=== PATIENT | male | born 1985 | race Caucasian/White ===

== ENCOUNTER 2018-02-07 21:07 | Emergency (ER) | payer SELFPAY ==
[2018-02-07] MEDS ORDERED: Sodium Chloride 0.9% 1,000 ML IV ONE ×2 (21:43→23:22)
--- NOTE | 2018-02-07 21:56 | C.PDOC ---
History Of Present Illness 32 year old male presents to the ER with a complaint of fever and body aches for the past 2 days, associated with mild congestion and mild cough. Patient states he started to have a right sided headache and facial pain and was convinced that he had an otitis media. He was started on augmentin and ibuprofen for pain; however, fever is still 103 and headache persists. He also notes feeling some pain to his right ear; denies other PMHx, chest pain, abdominal pain, nausea, or vomiting. Time Seen by Provider: 02/07/18 21:38 Chief Complaint (Nursing): Fever History Per: Patient History/Exam Limitations: no limitations Onset/Duration Of Symptoms: Days Current Symptoms Are (Timing): Still Present Location Of Pain: Ear(s), Sinus/es, Headache Sick Contacts (Context): None Associated Symptoms: Fever, Cough, Myalgias, Nasal Congestion. denies: Nausea, Vomiting, Diarrhea Ear Symptoms: Bilateral: None Recent travel outside of the [place]: No Past Medical History Reviewed: Historical Data, Nursing Documentation, Vital Signs Vital Signs: Last Vital Signs Temp 100.8 F H 02/08/18 00:59 Pulse 94 H 02/08/18 00:59 Resp 18 02/08/18 00:59 BP 116/70 02/08/18 00:59 Pulse Ox 96 02/08/18 00:59 Family History: States: Unknown Family Hx - Social History Hx Alcohol Use: No Hx Substance Use: No - Immunization History Hx Tetanus Toxoid Vaccination: No Hx Influenza Vaccination: No Hx Pneumococcal Vaccination: No Review Of Systems Constitutional: Positive for: Fever ENT: Positive for: Ear Pain Respiratory: Positive for: Cough, Other (Congestion) Gastrointestinal: Negative for: Nausea, Vomiting Musculoskeletal: Positive for: Other (Body aches) Neurological: Positive for: Headache Physical Exam - Physical Exam Appears: Non-toxic, No Acute Distress, Other (Uncomfortable) Skin: Normal Color, Warm, Dry Head: Atraumatic, Normacephalic, Tenderness (Mild right frontal) Eye(s): bilateral: Normal Inspection Ear(s): Bilateral: Normal (No fluid) Nose: Normal Oral Mucosa: Moist Throat: Normal, No Erythema, No Exudate Neck: Normal, Supple Lymphatic: No Adenopathy Chest: Symmetrical, No Tenderness Cardiovascular: Rhythm Regular Respiratory: Normal Breath Sounds, No Rales, No Rhonchi, No Wheezing Gastrointestinal/Abdominal: Soft, No Tenderness Back: No CVA Tenderness Neurological/Psych: Oriented x3, Normal Speech ED Course And Treatment - Laboratory Results Result Diagrams: 02/07/18 22:10 02/07/18 22:10 Lab Interpretation: No Acute Changes (Negative flu) O2 Sat by Pulse Oximetry: 96 (Room air) Pulse Ox Interpretation: Normal - Radiology CXR: Interpreted by Ny CXR Interpretation: Yes: Infiltrates (right pneumonia) - CT Scan/US sinuses Other Rad Studies (CT/US): Read By Radiologist, Radiology Report Reviewed CT/US Interpretation: Accession No. : [id number]. Patient Name / ID : SERA GOODSON / [id number]. Exam Date : 02/07/2018 22:15:23 ( Approved ). Study Comment : Sex / Age : M / 32Y. Creator : Cody Rashid MD. Dictator : Shank Stapler : Water Mangle Tender : Cody Rashid MD. Approver2 : Report Date : 22:54:00. My Comment : . [facility] Division of Radiology. [address] [place] [address]. Tel. no. [phone]. . . Patient Name: KELLEE ZAMORA . Pt. Address: [address] [place] [address] Rec #: [id number]. [place] [address]: Nessa Johnson MD. Pt Order Location: [facility] : 1985 Male Age: 32 Order #: [id number]. Accession # : [id number]. Reason for exam: fever with right sided headache. . . . . . CT Scan. . . SINUSES W/O CONTRAST Exam Date: 02/07/18. . This imaging exam was performed at [facility]. EXAM: CT Maxillofacial Sinuses Without Intravenous Contrast. . CLINICAL HISTORY: 32 years old, male; Pain; Headache; Tension; Additional info: Fever with. right sided headache. . TECHNIQUE: Computed tomography images of the maxillofacial sinuses without intravenous. contrast. All CT scans at this facility use one or more dose reduction. techniques, viz.: automated exposure control; ma/kV adjustment per patient size. (including targeted exams where dose is matched to indication; i.e. head); or. iterative reconstruction technique. Coronal and sagittal reformatted images were created and reviewed. . COMPARISON: No relevant prior studies available. . FINDINGS: Maxillary sinuses: Minimal mucosal thickening. Right maxillary retention. cyst. No air -fluid levels. Sphenoid sinuses: Minimal mucosal thickening. No air-fluid levels. Frontal sinuses: Minimal mucosal thickening. No air-fluid levels. Ethmoid air cells: Mild mucosal thickening. No air-fluid levels. Nasal cavity /septum: No acute findings. Mastoid air cells: No mastoid effusion. Bones/ joints: No acute fracture. Soft tissues: Unremarkable. Orbits: Unremarkable as visualized. . IMPRESSION: 1. Sinus disease as above. . Dictated By: Cody Rashid MD. Dictated Date/Time: 02/07/182253. Signed By: Cody Rashid MD. Date Signed: 02/07/182253. Transcribed By: [employer]gle[employer]. Transcribe Date/Time: 02/07/182253. ACYP02/MT Progress Note: CT sinus, blood work, CXR, flu swab, urinalysis ordered. IV fluids and toradol administered. Reevaluation Time: : Reassessment Condition: Improved (Still c/o right sided headache but temperature decreased to 100.8.) - Physician Consult Information Time Consulting Physician Contacted: 23:17 Physician Contacted: Amna Lama Outcome Of Conversation: will change antibiotics to Biaxin and will give Tramadol for persistent pain if needed. He will see him in the office. He should return to the Ed if symptoms worsen. Disposition Counseled Patient/Family Regarding: Studies Performed, Diagnosis, Need For Followup, Rx Given - Disposition Referrals: Amna Lama [Staff Provider] - Disposition: HOME/ ROUTINE Disposition Time: :01 Condition: IMPROVED Prescriptions: Clarithromycin [Biaxin Filmtab] 500 mg PO BID #20 tab traMADol [Ultram] 50 mg PO QID PRN #14 tab PRN Reason: Pain, Severe (8-10) Instructions: Community-Acquired Pneumonia in Adults Forms: [facility] (Czech) - Clinical Impression Clinical Impression: Pneumonia - Scribe Statement The provider has reviewed the documentation as recorded by the Scribe Shashank Rosas All medical record entries made by the Scribe were at my direction and personally dictated by me. I have reviewed the chart and agree that the record accurately reflects my personal performance of the history, physical exam, medical decision making, and the department course for this patient. I have also personally directed, reviewed, and agree with the discharge instructions and disposition.
[2018-02-07 22:13] LABS: BASO % 0.2 % (0.0-2.0); HEMOGLOBIN 13.3 g/dL (12.0-18.0); LYMPH # 1.2 K/uL (1.0-4.3); LYMPH % 12.5 % (20.0-40.0); MEAN CELL VOLUME 78.6 fL (80.0-94.0); MEAN CORPUSCULAR HEMOGLOBIN 26.8 pg (27.0-31.0); MEAN CORPUSCULAR HGB CONC 34.1 g/dL (33.0-37.0); MEAN PLATELET VOLUME 9.2 fL (7.2-11.7); MONO % 10.8 % (0.0-10.0); NEUT # 7.1 K/uL (1.8-7.0); NEUT % 76.5 % (50.0-75.0); NRBC % 0.1 % (0.0-2.0); RBC 4.98 Mil/uL (4.40-5.90); RED CELL DISTRIBUTION WIDTH 13.3 % (11.5-14.5); WHITE BLOOD COUNT 9.3 K/uL (4.8-10.8)
[2018-02-07 22:25] LABS: ALBUMIN 3.9 g/dL (3.5-5.0); ALT/SGPT 54 U/L (21-72); AST/SGOT 30 U/L (17-59); BLOOD UREA NITROGEN 6 mg/dL (9-20); CALCIUM 8.7 mg/dl (8.6-10.4); GFR AFRICAN-AMERICAN > 60; GFR NON-AFRICAN AMERICAN > 60
--- NOTE | 2018-02-07 22:54 | CT ---
EXAM: CT Maxillofacial Sinuses Without Intravenous Contrast CLINICAL HISTORY: 32 years old, male; Pain; Headache; Tension; Additional info: Fever with right sided headache TECHNIQUE: Computed tomography images of the maxillofacial sinuses without intravenous contrast. All CT scans at this facility use one or more dose reduction techniques, viz.: automated exposure control; ma/kV adjustment per patient size (including targeted exams where dose is matched to indication; i.e. head); or iterative reconstruction technique. Coronal and sagittal reformatted images were created and reviewed. COMPARISON: No relevant prior studies available. FINDINGS: Maxillary sinuses: Minimal mucosal thickening. Right maxillary retention cyst. No air-fluid levels. Sphenoid sinuses: Minimal mucosal thickening. No air-fluid levels. Frontal sinuses: Minimal mucosal thickening. No air-fluid levels. Ethmoid air cells: Mild mucosal thickening. No air-fluid levels. Nasal cavity/septum: No acute findings. Mastoid air cells: No mastoid effusion. Bones/joints: No acute fracture. Soft tissues: Unremarkable. Orbits: Unremarkable as visualized. IMPRESSION: 1. Sinus disease as above.
[2018-02-07 23:22] VITALS: O2SAT 96
[2018-02-08 01:29] VITALS: BP 120/78; PULSE 88; RESP 20; TEMP 98.1
--- NOTE | 2018-02-08 08:26 | RAD ---
PROCEDURE: CHEST RADIOGRAPH, 1 VIEW HISTORY: SOB COMPARISON: None FINDINGS: LUNGS: Is consolidation in the right perihilar region. The left lung is clear. PLEURA: No pneumothorax or pleural fluid seen. CARDIOVASCULAR: Normal. OSSEOUS STRUCTURES: No significant abnormalities. VISUALIZED UPPER ABDOMEN: Normal. OTHER FINDINGS: None. IMPRESSION: Right perihilar pneumonia. Follow-up to resolution is advised
== END 2018-02-08 01:00 | disposition home or self-care (01) ==
LOC: C.ER 21:07
DX: J18.9 Pneumonia, unspecified organism (principal)
CPT/HCPCS: 70486; 71045; 80053; 85025; 87040; 87804; 96361; 96374; 99285; J1885; J7040

== ENCOUNTER 2018-02-08 23:10 | Emergency (ER) | payer SELFPAY ==
[2018-02-08 23:28] VITALS: RESP 18
--- NOTE | 2018-02-08 23:47 | C.PDOC ---
History Of Present Illness Patient is a 32 year old male who returns to the ED complaining of persistent headache and fever. Patient was seen here yesterday, diagnosed with pneumonia, and reports taking his azithromycin as prescribed. Also reports taking Tylenol and Motrin throughout the day with persistent fever, Tmax of 100.9 at home. Patient complains the headache persists, and is right-sided and posterior. Also complaining of increased cough. Patient feels nauseous and vomited x4 today. Time Seen by Provider: 02/08/18 23:35 Chief Complaint (Nursing): Headache History Per: Patient History/Exam Limitations: no limitations Onset/Duration Of Symptoms: Days Current Symptoms Are (Timing): Worse Associated Symptoms: Nausea, Vomiting Past Medical History Reviewed: Historical Data, Nursing Documentation, Vital Signs Vital Signs: Last Vital Signs Temp 98.6 F 02/08/18 23:23 Pulse 102 H 02/08/18 23:23 Resp 18 02/08/18 23:23 BP 111/77 02/08/18 23:23 Pulse Ox 95 02/09/18 00:28 - Medical History PMH: No Chronic Diseases Surgical History: No Surg Hx Family History: States: No Known Family Hx - Social History Hx Alcohol Use: No Hx Substance Use: No - Immunization History Hx Tetanus Toxoid Vaccination: No Hx Influenza Vaccination: No Hx Pneumococcal Vaccination: No Review Of Systems Except As Marked, All Systems Reviewed And Found Negative. Constitutional: Positive for: Fever, Chills Cardiovascular: Negative for: Chest Pain Respiratory: Positive for: Cough. Negative for: Shortness of Breath Gastrointestinal: Positive for: Nausea, Vomiting. Negative for: Abdominal Pain , Diarrhea Neurological: Positive for: Headache. Negative for: Weakness Physical Exam - Physical Exam Appears: Non-toxic, No Acute Distress Skin: Normal Color, Warm, Dry, No Rash Head: Atraumatic, Normacephalic, Tenderness (right temporal and parietal scalp) , Other (No mastoid tenderness; No tenderness over frontal or maxillary sinuses) Eye(s): bilateral: Normal Inspection, PERRL, EOMI Ear(s): Bilateral: Normal Nose: Normal Oral Mucosa: Moist Throat: Normal Neck: Normal (with no carotid bruit), Normal ROM, Supple Lymphatic: Normal Exam, No Adenopathy Chest: Symmetrical, No Tenderness Cardiovascular: Rhythm Regular, No Murmur Respiratory: No Rhonchi, No Wheezing, Other (Lungs clear to auscultation) Gastrointestinal/Abdominal: Soft, No Tenderness, No Distention Extremity: Bilateral: Atraumatic, Normal Color And Temperature, Normal ROM Pulses: Left Radial: Normal, Right Radial: Normal Neurological/Psych: Oriented x3, Normal Speech, Normal Cranial Nerves, Normal Motor, Normal Sensation, No Other (focal deficits) Gait: Steady ED Course And Treatment - Laboratory Results Result Diagrams: 02/08/18 23:56 02/08/18 23:56 O2 Sat by Pulse Oximetry: 95 (RA) Pulse Ox Interpretation: Normal Medical Decision Making Medical Decision Makin:[address] Head and repeat blood work. Patient given 2 mg Morphine IV. Patient was seen in the ED by Dr Yu and case discussed. Patient appears well, has no fever or respiratory distress at this time. He is c/o a localized pain in his right scalp similar to what he had yesterday. The pain has not been relieved by NSAIDS, Tylenol or Tramadol. Morphine ordered in the ED tonight. Differential diagnosis includes neuropathic pain, sinusitis, carotid dissection (unlikely). Sinus CT done last night does not show significant pathology. Viral etiology such as Zoster is also a consideration. CXR today shows right posterior wedge like infiltrate. CT angio ordered. Disposition - Disposition Disposition Time: 00:46 Condition: FAIR Forms: [facility] (Irish) - Clinical Impression Clinical Impression: Headache, Pneumonia - Scribe Statement The provider has reviewed the documentation as recorded by the Yaquelinibe Ivone Horner Provider Attestation: All medical record entries made by the Yaquelinibe were at my direction and personally dictated by me. I have reviewed the chart and agree that the record accurately reflects my personal performance of the history, physical exam, medical decision making, and the department course for this patient. I have also personally directed, reviewed, and agree with the discharge instructions and disposition. Physician Patient Turnover Patient Signed Over To: Pop Patterson Handoff Comments: pending CT head and chest.
[2018-02-08 23:59] LABS: BASO % 0.4 % (0.0-2.0); EOS % 0.2 % (0.0-4.0); HEMOGLOBIN 12.9 g/dL (12.0-18.0); LYMPH # 1.2 K/uL (1.0-4.3); LYMPH % 14.7 % (20.0-40.0); MEAN CELL VOLUME 78.4 fL (80.0-94.0); MEAN CORPUSCULAR HEMOGLOBIN 26.5 pg (27.0-31.0); MEAN CORPUSCULAR HGB CONC 33.8 g/dL (33.0-37.0); MEAN PLATELET VOLUME 9.2 fL (7.2-11.7); MONO # 1.1 K/uL (0.0-0.8); MONO % 12.5 % (0.0-10.0); NEUT # 6.1 K/uL (1.8-7.0); NEUT % 72.2 % (50.0-75.0); RBC 4.85 Mil/uL (4.40-5.90); RED CELL DISTRIBUTION WIDTH 13.2 % (11.5-14.5); WHITE BLOOD COUNT 8.4 K/uL (4.8-10.8)
[2018-02-09 00:12] LABS: ALB/GLOB RATIO 0.9 (1.0-2.1); ALBUMIN 3.6 g/dL (3.5-5.0); ALT/SGPT 49 U/L (21-72); AST/SGOT 41 U/L (17-59); BLOOD UREA NITROGEN 5 mg/dL (9-20); CALCIUM 8.5 mg/dl (8.6-10.4); GFR AFRICAN-AMERICAN > 60; GFR NON-AFRICAN AMERICAN > 60
[2018-02-09] MEDS ORDERED: Iodixanol 320 MG/ML 100 ML BOTTLE IV ONE (00:57)
--- NOTE | 2018-02-09 01:55 | CT ---
EXAM: CT Head Without Intravenous Contrast CLINICAL HISTORY: 32 years old, male; Pain; Headache TECHNIQUE: Axial computed tomography images of the head/brain without intravenous contrast. All CT scans at this facility use one or more dose reduction techniques, viz.: automated exposure control; ma/kV adjustment per patient size (including targeted exams where dose is matched to indication; i.e. head); or iterative reconstruction technique. COMPARISON: No relevant prior studies available. FINDINGS: Brain: No intracranial hemorrhage. No mass. No definite edema. Ventricles: No hydrocephalus. Bones/joints: No acute fracture. Soft tissues: Unremarkable. Sinuses: No acute sinusitis. Mastoid air cells: No mastoid effusion. Orbits: Unremarkable as visualized. IMPRESSION: 1. No definite acute intracranial abnormality.
--- NOTE | 2018-02-09 02:00 | CT ---
EXAM: CT Angiography Chest With Intravenous Contrast CLINICAL HISTORY: 32 years old, male; Pain; Chest pain; Right-sided chest pain; Additional info: Right chest infiltrate R/O pe TECHNIQUE: Axial computed tomographic angiography images of the chest with intravenous contrast using pulmonary embolism protocol. All CT scans at this facility use one or more dose reduction techniques, viz.: automated exposure control; ma/kV adjustment per patient size (including targeted exams where dose is matched to indication; i.e. head); or iterative reconstruction technique. MIP reconstructed images were created and reviewed. Coronal and sagittal reformatted images were created and reviewed. CONTRAST: 100 mL of [id number] administered intravenously. COMPARISON: No relevant prior studies available. FINDINGS: Limitations: Suboptimal timing of bolus. Pulmonary arteries: No definite pulmonary embolism. Aorta: No aneurysm. No dissection. Lungs: Moderate consolidation right lower lobe. Pleural space: Small right pleural effusion. Trace left pleural effusion. Heart: No cardiomegaly. Trace pericardial effusion. Mediastinum: Probable residual thymus. Bones/joints: No acute fracture. Soft tissues: Minimal gynecomastia. Lymph nodes: Few subcentimeter short axis mediastinal and hilar lymph nodes. IMPRESSION: 1. No definite CT evidence of pulmonary embolism. 2. Probable RLL pneumonia. Followup to resolution to exclude underlying pathology. 3. Incidental/non-acute findings are described above.
[2018-02-09 02:40] VITALS: BP 126/84; PULSE 92; TEMP 98.2; O2SAT 99
--- NOTE | 2018-02-09 10:17 | RAD ---
HISTORY: pneumonia COMPARISON: No prior. TECHNIQUE: Chest PA and lateral FINDINGS: LUNGS: Patchy opacity felt to present within the superior segment right lower lobe. PLEURA: No significant pleural effusion identified. No pneumothorax apparent. CARDIOVASCULAR: Normal. OSSEOUS STRUCTURES: No significant abnormalities. VISUALIZED UPPER ABDOMEN: Normal. OTHER FINDINGS: None. IMPRESSION: Patchy opacity seen in what is felt to be the superior segment right lower lobe
== END 2018-02-09 02:39 | disposition home or self-care (01) ==
LOC: C.ER 23:10
DX: J18.9 Pneumonia, unspecified organism (principal); R51 Headache
CPT/HCPCS: 70450; 71046; 71275; 80053; 85025; 96374; 99284; J2270; Q9967